=== PATIENT | male | born 1980 | race Caucasian/White ===

== ENCOUNTER 2019-02-18 10:23 | Emergency (ER) | payer OTHER ==
[~2019-02-18] VITALS: Ht 180.3 cm; Wt 90.7 kg
[2019-02-18 11:11] LABS: ABSOLUTE NEUTROPHILS 3.5 thou/uL (1.4-8.2); BASOPHILS 0.6 % (0.0-2.0); EOSINOPHILS 1.6 % (0.0-3.0); HEMATOCRIT 41.6 % (42.0-52.0); HEMOGLOBIN 14.3 gm/dL (14.0-18.0); LYMPHOCYTES 26.3 % (24.0-44.0); MCH 28.5 pg (26.0-34.0); MCHC 34.4 g/dL (28.0-37.0); MONOCYTES 10.9 % (1.0-8.0); PLATELET COUNT 245 thou/uL (150-400); POLYS 60.6 % (36.0-66.0); RBC 5.01 mil/uL (4.50-6.00); RDW 13.1 % (10.5-14.5); WBC 5.8 thou/uL (4.0-11.0)
[2019-02-18 11:27] LABS: ANION GAP 12 mmol/L (7-16); BUN 8 mg/dL (7-18); CALCIUM 9.7 mg/dL (8.5-10.1); CHLORIDE 100 mmol/L (98-107); CO2 24 mmol/L (21-32); CREATININE 0.7 mg/dL (0.7-1.3); GLUCOSE 110 mg/dL (74-106); POTASSIUM 4.3 mmol/L (3.5-5.1); SODIUM 136 mmol/L (136-145)
[2019-02-18 11:31] LABS: URINE BILIRUBIN NEGATIVE (Negative); URINE BLOOD NEGATIVE (Negative); URINE CLARITY CLEAR; URINE COLOR YELLOW; URINE GLUCOSE-RANDOM* NEGATIVE (Negative); URINE KETONES NEGATIVE (Negative); URINE LEUKOCYTES-REFLEX NEGATIVE (Negative); URINE NITRITE-REFLEX NEGATIVE (Negative); URINE PROTEIN (DIPSTICK) NEGATIVE (Negative); URINE UROBILINOGEN 0.2 E.U./dl (0.2-1.0)
[2019-02-18 11:32] LABS: AMP/METHAMP Negative (Negative); BARBITURATES Negative (Negative); BENZODIAZEPINES Negative (Negative); COCAINE Negative (Negative); METHADONE Negative (Negative); OPIATES POSITIVE (Negative); PCP Negative (Negative)
[2019-02-18 11:35] LABS: ALBUMIN 4.4 g/dL (3.4-5.0); MAGNESIUM 2.2 mg/dL (1.8-2.4); SALICYLATE < 2.8 mg/dL (2.8-20.0); SGOT 36 U/L (15-37); SGPT 42 U/L (30-65); TOTAL BILIRUBIN 0.6 mg/dL (<0.1-1.0); TOTAL PROTEIN 8.4 g/dL (6.4-8.2); TROPONIN-I <0.06 ng/mL (<0.06)
[2019-02-18] MEDS ORDERED: NORCO 5-325 TA1 EACH PO (11:41)
[2019-02-18] MEDS ORDERED: AMOXICILLIN 50500 MG PO (11:41)
[2019-02-18] MEDS ORDERED: NEXIUM40 MG PO (11:42)
[2019-02-18] MEDS ORDERED: BENADRYL25 MG PO (11:43)
[2019-02-18] MEDS ORDERED: FLONASE 0.05%50 MCG NASAL (11:43)
[2019-02-18] MEDS ORDERED: XANAX 0.5 MG0.5 M1 PO (12:24)
[2019-02-18 12:48] VITALS: BP 145/85
--- NOTE | 2019-02-19 09:40 | EKG ---
[address] [address] [address] [place] [address] ELECTROCARDIOGRAM REPORT Name: NADER VALENTINE Room #: DEP RYAN Pinto#: [id number] ������������������ Admission: 02/18/19 ������������������ Attend Phys: Discharge: 02/18/19 ������������������ Date of : 78 Report #: [id number] ����������������������������������������������������������������� [id number] THIS REPORT FOR: //name// [facility] ED Test Date: 2019-02-18 Test Time: 11:13:41 Pat Name: NADER VALENTINE Department: Room: Gender: Banking Paralegal: [place] : 1980 Requested By: Kumar Juan Order Number: [id number] MD: Bakari Tsocano Measurements Intervals [place] Rate: 84 P: -9 TX: 147 QRS: -3 QRSD: 92 T: 2 QT: 352 QTc: 417 Interpretive Statements Sinus rhythm Normal tracing No previous ECG available for comparison Electronically Signed On 02-19-2019 9:40:23 CDT by Bakari Toscano [email or web address] ��������������������������������������������� <ELECTRONICALLY SIGNED> ���������������������������������������� By: Bakari Toscano MD, [facility] ��������������������������������������������� 02/19/19 0940 1113 1113 Bakari Toscano MD, FACC /EPI
== END 2019-02-18 12:58 | disposition home or self-care (01) ==
LOC: ER 10:23
PROVIDERS: Emergency Medicine
DX: G47.30 Sleep apnea, unspecified (principal); F41.9 Anxiety disorder, unspecified; Z79.899 Other long term (current) drug therapy